=== PATIENT | female | born 1945 | race Caucasian/White ===

== ENCOUNTER 2016-10-12 17:57 | Emergency (ER) | payer MEDICARE ==
[~2016-10-12] VITALS: Ht 157.5 cm; Wt 95.3 kg
[~2016-10-12 17:57] MED LIST: CRESTOR10 MG PO; DETROL LA4 MG PO; DYMISTA1 SPR; LISINOPRIL5 MG PO; LORTAB 10/500 51 TAB PO; PRILOSEC20 MG PO; SINGULAIR10 MG PO; SULINDAC150 MG PO; ZOLOFT 50MG TAB50 MG PO
[2016-10-12] MEDS ORDERED: SIMVASTATIN40 MG PO (18:16)
--- NOTE | 2016-10-12 18:41 | Urgent Treatment Center Report ---
History of Present Issue Date/Time Seen by Provider 10/12/16 189 Visit Reason Pt arrived:Walked Presenting Problem:PT STATES HITTING RIGHT HAND ON CORNER OF TABLE TODAY AT 1100. STATES PAIN WITH USE. STATES TAKING ALEVE AT 1600 WITH SOME RELIEF. Location if Accident:Home Onset of symptoms date/time:10/12/16 or onset unknown for: Have you (or family members/close friends) recently traveled outside the [place]? N If Yes, where/when: Have you had exposure to infectious disease within the past month? TB? Other? Specify: c/o localized pain in right hand since smaking it on the corner of a table earlier today, around 11am. "I just need to get an xray to ensure it is not broken". Immediate pain but throughout the day, it has gotten worse. 8/10 at its worse 3 hours ago and now down to 3/10 after aleve around 1600 today. aching at rest but sharp at times with movement. Denies swelling but "slight" bruise to dorsal surface of hand in area of discomfort (proximal end 4th metacarpal). All 5 fingertips feel "a little numb" but reports that has started since pain got worse. She quit using hand at that point and has been babying it since. No tingling and full ROM of fingers and wrist. Source patient Exam Limitations no limitations ALLERGIES Coded Allergies: Sulfa (Sulfonamide Antibiotics) (Severe, [id number] 12/28/15) Home Medications Reported Medications Lisinopril 5 MG PO DAILY Omeprazole (Prilosec 20MG) 20 MG PO DAILY Tolterodine Tartrate (Detrol La) 4 MG PO DAILY Montelukast Sodium (Singulair) 10 MG PO DAILY AZELASTINE/FLUTICASONE (Dymista Nasal [place]) Sertraline Hcl (Zoloft 50MG) 50 MG PO DAILY Simvastatin (Simvastatin 40MG Tab) 40 MG PO DAILY #90 History Medical History General CAD? No Angina: No DC: No Hypertension? Yes Hyperlipidemia? Yes CHF? No DVT? No PE? No COPD? No Asthma? No Anemia? No GERD? Yes Gastric ulcers? No GI Bleed? No Hernia? No Thyroid Problems? Yes Hypothyroidism? Yes CVA? No Seizures? No Diabetes? No Renal Insuffiency? No UTI? No Stones? Yes GB Disease: Yes Nephritic Syndrome? No Asplenia? No Hepatitis? No Sickle Cell Disease? No Arthritis? No Migraines? No Cataracts? No Glaucoma? No MRSA? No HIV? No TB? No Anxiety? No Depression? No Cancer? No Immunization HX DT/Tetanus Unknown Surgical Hx Previous Surgery?Y KNEE SURGERY Tubal Ligation [place] SINUS SURGERY Family History Family HX Diabetes Yes CAD Yes Hypertension Yes Hyperlipidemia No Cancer Yes TB No Social History Smoking Hx Smoker: Never Smoker Tobacco: No Alcohol Alcohol: No Review of Systems All Other Systems Reviewed and Negative Musculoskeletal see HPI Skin see HPI Psychiatric/Neurological see HPI Physical Exam Vital Signs Vital Signs Date Time Temp Pulse Resp B/P Pulse O2 O2 Flow FiO2 Ox Delivery Rate 10/12 1904 98.0 107 20 116/62 98 10/12 181 98.0 107 20 116/62 98 General Appearance normal appearance, no apparent distress Respiratory Status No: respiratory distress. Cardiovascular no peripheral edema Peripheral Pulses Pulses normal Yes (radial) Extremities normal range of motion (rt fingers and wrist), mild tenderness over light bruise dorsal surface of right hand, proximal metatarsal; no swelling Strength 5 Lower Ext (L), 5 Lower Ext (R) (including line service attendant bilaterally 5/5) Neurologic alert, no motor/sensory deficits Skin warm/dry, bruising (see extremity) Medical Decision Making LABS/Meds/Orders Pt receiving controlled substance in ED? No Results/Orders Orders Procedure Date/time Status HAND-RT 3 VIEWS 10/12 1818 Active XRAY/CT/US XRAY/CT/US XRAY hand XR interpretation by reviewed by me Xray Results normal/NAD, no fracture seen Departure Departure Time of Disposition 1899 Disposition DC Home or Self Care(routine) Clinical Impression Primary Impression: Contusion of right hand, initial encounter Qualifiers: Encounter type: initial encounter Qualified Code: S60.221A - Contusion of right hand, initial encounter Condition STABLE Referrals Kirk AGUIALR,Suman Rodriguez (Family) Follow up IMMEDIATELY for new or worsening symptoms OR no noticeable improvement over the next 72 hours. 911 for difficulty breathing. Patient Instructions DI for Contusion Additional Instructions * continue to use hand. Less use can lead to stiffness and then increased pain * ice 15-20 mins 3-4 times a day * Elevate as discussed as much as possible to help reduce swelling and therefore , pain * Ibuprofen 600-800mg every 6-8 hours as needed for pain and inflammation. If need something more, can take tylenol inbetween ibuprofen doses. Follow up IMMEDIATELY for new or worsening symptoms OR no noticeable improvement over the next 3-5 days. Discharge Counseling Counseled pt/family regarding diagnosis, test results, medications/RX, home care, follow up needs at [phone]
--- NOTE | 2016-10-12 18:41 | Urgent Treatment Center Report ---
History of Present Issue Date/Time Seen by Provider 10/12/16 962 Visit Reason Pt arrived:Walked Presenting Problem:PT STATES HITTING RIGHT HAND ON CORNER OF TABLE TODAY AT 1100. STATES PAIN WITH USE. STATES TAKING ALEVE AT 1600 WITH SOME RELIEF. Location if Accident:Home Onset of symptoms date/time:10/12/16 or onset unknown for: Have you (or family members/close friends) recently traveled outside the [place]? N If Yes, where/when: Have you had exposure to infectious disease within the past month? TB? Other? Specify: c/o localized pain in right hand since smaking it on the corner of a table earlier today, around 11am. "I just need to get an xray to ensure it is not broken". Immediate pain but throughout the day, it has gotten worse. 8/10 at its worse 3 hours ago and now down to 3/10 after aleve around 1600 today. aching at rest but sharp at times with movement. Denies swelling but "slight" bruise to dorsal surface of hand in area of discomfort (proximal end 4th metacarpal). All 5 fingertips feel "a little numb" but reports that has started since pain got worse. She quit using hand at that point and has been babying it since. No tingling and full ROM of fingers and wrist. Source patient Exam Limitations no limitations ALLERGIES Coded Allergies: Sulfa (Sulfonamide Antibiotics) (Severe, [id number] 12/28/15) Home Medications Reported Medications Lisinopril 5 MG PO DAILY Omeprazole (Prilosec 20MG) 20 MG PO DAILY Tolterodine Tartrate (Detrol La) 4 MG PO DAILY Montelukast Sodium (Singulair) 10 MG PO DAILY AZELASTINE/FLUTICASONE (Dymista Nasal [place]) Sertraline Hcl (Zoloft 50MG) 50 MG PO DAILY Simvastatin (Simvastatin 40MG Tab) 40 MG PO DAILY #90 History Medical History General CAD? No Angina: No CA: No Hypertension? Yes Hyperlipidemia? Yes CHF? No DVT? No PE? No COPD? No Asthma? No Anemia? No GERD? Yes Gastric ulcers? No GI Bleed? No Hernia? No Thyroid Problems? Yes Hypothyroidism? Yes CVA? No Seizures? No Diabetes? No Renal Insuffiency? No UTI? No Stones? Yes GB Disease: Yes Nephritic Syndrome? No Asplenia? No Hepatitis? No Sickle Cell Disease? No Arthritis? No Migraines? No Cataracts? No Glaucoma? No MRSA? No HIV? No TB? No Anxiety? No Depression? No Cancer? No Immunization HX DT/Tetanus Unknown Surgical Hx Previous Surgery?Y KNEE SURGERY Tubal Ligation [place] SINUS SURGERY Family History Family HX Diabetes Yes CAD Yes Hypertension Yes Hyperlipidemia No Cancer Yes TB No Social History Smoking Hx Smoker: Never Smoker Tobacco: No Alcohol Alcohol: No Review of Systems All Other Systems Reviewed and Negative Musculoskeletal see HPI Skin see HPI Psychiatric/Neurological see HPI Physical Exam Vital Signs Vital Signs Date Time Temp Pulse Resp B/P Pulse O2 O2 Flow FiO2 Ox Delivery Rate 10/12 1904 98.0 107 20 116/62 98 10/12 181 98.0 107 20 116/62 98 General Appearance normal appearance, no apparent distress Respiratory Status No: respiratory distress. Cardiovascular no peripheral edema Peripheral Pulses Pulses normal Yes (radial) Extremities normal range of motion (rt fingers and wrist), mild tenderness over light bruise dorsal surface of right hand, proximal metatarsal; no swelling Strength 5 Lower Ext (L), 5 Lower Ext (R) (including manager safe bilaterally 5/5) Neurologic alert, no motor/sensory deficits Skin warm/dry, bruising (see extremity) Medical Decision Making LABS/Meds/Orders Pt receiving controlled substance in ED? No Results/Orders Orders Procedure Date/time Status HAND-RT 3 VIEWS 10/12 1818 Active XRAY/CT/US XRAY/CT/US XRAY hand XR interpretation by reviewed by me Xray Results normal/NAD, no fracture seen Departure Departure Time of Disposition 1899 Disposition DC Home or Self Care(routine) Clinical Impression Primary Impression: Contusion of right hand, initial encounter Qualifiers: Encounter type: initial encounter Qualified Code: S60.221A - Contusion of right hand, initial encounter Condition STABLE Referrals Kirk AGUILAR,Suman Rodriguez (Family) Follow up IMMEDIATELY for new or worsening symptoms OR no noticeable improvement over the next 72 hours. 911 for difficulty breathing. Patient Instructions DI for Contusion Additional Instructions * continue to use hand. Less use can lead to stiffness and then increased pain * ice 15-20 mins 3-4 times a day * Elevate as discussed as much as possible to help reduce swelling and therefore , pain * Ibuprofen 600-800mg every 6-8 hours as needed for pain and inflammation. If need something more, can take tylenol inbetween ibuprofen doses. Follow up IMMEDIATELY for new or worsening symptoms OR no noticeable improvement over the next 3-5 days. Discharge Counseling Counseled pt/family regarding diagnosis, test results, medications/RX, home care, follow up needs at [phone]
[2016-10-12 19:05] VITALS: BP 116/62
--- NOTE | 2016-10-13 00:06 | RADIOLOGY REPORT PS360 ---
HAND-RT 3 VIEWS HISTORY: Pain following injury HIT HAND ON CORNER OF TABLE ORDERING PHYSICIAN: NORA MARLEY APRN PATIENT AGE: 71 years COMPARISON: None FINDINGS: No fracture or dislocation. No lytic or blastic change. There is normal mineralization. The joint spaces are well-preserved. No significant degenerative/arthritic changes. No erosive changes evident. IMPRESSION: Negative, no acute finding
== END 2016-10-12 19:05 | disposition home or self-care (01) ==
LOC: UTC 17:57
DX: S60.221A Contusion of right hand, initial encounter (principal); I10 Essential (primary) hypertension; K21.9 Gastro-esophageal reflux disease without esophagitis; W22.03XA Walked into furniture, initial encounter; Y92.009 Unspecified place in unspecified non-institutional (private) residence as the place of occurrence of the external cause